=== PATIENT | female | born 1955 | race Caucasian/White ===

== ENCOUNTER 2020-03-03 18:31 | Inpatient (IN) ==
[2020-03-03] MEDS ORDERED: *HR* LORazepam 2 MG/ML VIAL IVP ONE (21:41)
[2020-03-03] MEDS ORDERED: Haloperidol Lactate 5 MG/ML VIAL IM ONE ×2 (21:51→22:36)
[2020-03-03] MEDS ORDERED: Ondansetron 4 MG/2 ML VIAL IVP PRN (22:31)
[2020-03-03] MEDS ORDERED: Naloxone 0.4 MG/ML INJ IVP PRN ×2 (22:31)
[2020-03-03] MEDS ORDERED: Acetaminophen 650 MG RECTAL SUPP RC PRN (22:31)
[2020-03-03] MEDS ORDERED: Dexmedetomidine HCl 400 MCG/100 ML MLS IVC ONE (22:53)
[2020-03-03] MEDS ORDERED: D5% in Water 1,000 ML IVC ONE (22:54)
[2020-03-03] MEDS ORDERED: levETIRAcetam 250 MG TABLET PO SCH (22:56)
[2020-03-03] MEDS ORDERED: Dexmedetomidine HCl 400 MCG/100 ML MLS IVC SCH (23:00)
[2020-03-03] MEDS ORDERED: D5% in Water 1,000 ML IVC SCH (23:00)
[2020-03-04 05:13] LABS: Basophils % 0.5 %; Eosinophils # 0.1 K/mcL (0.0-0.6); Eosinophils % 2.5 %; Hematocrit 39.6 % (35.3-44.9); Hemoglobin 12.3 g/dL (11.5-15.4); Immature Granulocytes % 0.2 % (0-4); Lymphocytes # 2.1 K/mcL (0.6-4.6); Mean Corpuscular HGB Conc 31.1 g/dL (31.6-35.5); Mean Corpuscular Hemoglobin 31.1 pg (28.0-33.3); Mean Corpuscular Volume 100.3 fL (83.0-100.0); Mean Platelet Volume 12.5 fL (9.4-12.4); Monocytes # 0.3 K/mcL (0.0-1.3); Monocytes % 7.1 %; Neutrophils # 1.8 K/mcL (1.6-8.9); Platelet Count 104 K/mcL (140-400); Red Blood Count 3.95 M/mcL (3.82-4.97); Red Cell Distribution Width 13.6 % (11.5-14.5); Segmented Neutrophils % 40.7 %; White Blood Count 4.4 K/mcL (4.3-11.1)
[2020-03-04 05:36] LABS: BUN/Creatinine Ratio 52 (6-26); Blood Urea Nitrogen 25 mg/dL (8-23); Calcium 8.8 mg/dL (8.6-10.3); Carbon Dioxide 28 mEq/L (23-29); Chloride 115 mEq/L (98-107); Glucose 155 mg/dL (70-105); Magnesium 2.1 mg/dL (1.6-2.6); Osmolality,Calculated 316 (280-300); Potassium 3.4 mEq/L (3.5-5.1); Sodium 149 mEq/L (136-145); eGFR For African Americans > 60 (> 60); eGFR For Non-African Americans > 60 (> 60)
[2020-03-04] MEDS ORDERED: *HR* Enoxaparin 30 MG/0.3 ML SYRINGE SQ SCH (06:00)
[2020-03-04] MEDS ORDERED: levETIRAcetam 250 MG TABLET PO SCH (09:00)
[2020-03-04] MEDS ORDERED: Multivit/Ca/Min/Fe/FA 1 TAB TABLET PO SCH (09:00)
[2020-03-04] MEDS ORDERED: Pantoprazole 40 MG VIAL IVP SCH (09:00)
[2020-03-04] MEDS ORDERED: Cholecalciferol (D-3) 1,000 UNIT (25MCG) TABLET PO SCH (09:00)
[2020-03-04] MEDS ORDERED: CarBAMazepine 100 MG TABLET PO SCH (09:00)
[2020-03-04] MEDS ORDERED: QUEtiapine Fumarate 25 MG TABLET PO SCH ×3 (09:00→21:00)
[2020-03-04] MEDS ORDERED: Acetaminophen 325 MG TABLET PO PRN (12:29)
[2020-03-04] MEDS ORDERED: Ondansetron 4 MG/2 ML VIAL IVP PRN (12:29)
[2020-03-04] MEDS ORDERED: D5% in Water 1,000 ML IVC SCH (12:29)
[2020-03-04] MEDS ORDERED: Acetaminophen 650 MG RECTAL SUPP RC PRN (12:29)
[2020-03-04 14:53] LABS: BUN/Creatinine Ratio 43 (6-26); Blood Urea Nitrogen 22 mg/dL (8-23); Calcium 8.9 mg/dL (8.6-10.3); Carbon Dioxide 31 mEq/L (23-29); Chloride 113 mEq/L (98-107); Glucose 77 mg/dL (70-105); Osmolality,Calculated 308 (280-300); Potassium 3.8 mEq/L (3.5-5.1); Sodium 148 mEq/L (136-145); eGFR For African Americans > 60 (> 60); eGFR For Non-African Americans > 60 (> 60)
[2020-03-04] MEDS: CarBAMazepine 100 MG TABLET PO SCH ×2 (19:46→22:38)
[2020-03-04] MEDS: QUEtiapine Fumarate 25 MG TABLET PO SCH (19:47)
[2020-03-04] MEDS ORDERED: Mirtazapine 15 MG TABLET PO SCH (21:00)
[2020-03-04] MEDS ORDERED: carBAMazepine 200 MG TABLET PO SCH (21:00)
[2020-03-04] MEDS: Cholecalciferol (D-3) 1,000 UNIT (25MCG) TABLET PO SCH (22:11)
[2020-03-04] MEDS: levETIRAcetam 250 MG TABLET PO SCH (22:12)
[2020-03-04] MEDS ORDERED: Haloperidol Lactate 5 MG/ML VIAL IVP ONE (22:21)
[2020-03-05 05:31] LABS: Basophils % 0.4 %; Eosinophils # 0.2 K/mcL (0.0-0.6); Eosinophils % 3.7 %; Hematocrit 39.8 % (35.3-44.9); Hemoglobin 12.9 g/dL (11.5-15.4); Immature Granulocytes % 0.4 % (0-4); Lymphocytes % 57.7 %; Mean Corpuscular HGB Conc 32.4 g/dL (31.6-35.5); Mean Corpuscular Hemoglobin 31.5 pg (28.0-33.3); Mean Corpuscular Volume 97.3 fL (83.0-100.0); Mean Platelet Volume 12.3 fL (9.4-12.4); Monocytes # 0.5 K/mcL (0.0-1.3); Monocytes % 8.7 %; Neutrophils # 1.5 K/mcL (1.6-8.9); Platelet Count 110 K/mcL (140-400); Red Blood Count 4.09 M/mcL (3.82-4.97); Red Cell Distribution Width 13.2 % (11.5-14.5); Segmented Neutrophils % 29.1 %; White Blood Count 5.2 K/mcL (4.3-11.1)
[2020-03-05 05:52] LABS: BUN/Creatinine Ratio 26 (6-26); Blood Urea Nitrogen 15 mg/dL (8-23); Calcium 8.6 mg/dL (8.6-10.3); Carbon Dioxide 26 mEq/L (23-29); Chloride 110 mEq/L (98-107); Glucose 94 mg/dL (70-105); Osmolality,Calculated 295 (280-300); Potassium 3.8 mEq/L (3.5-5.1); Sodium 142 mEq/L (136-145); eGFR For African Americans > 60 (> 60); eGFR For Non-African Americans > 60 (> 60)
[2020-03-05 08:06] VITALS: BP 134/9
[2020-03-05] MEDS: levETIRAcetam 250 MG TABLET PO SCH (08:36)
[2020-03-05] MEDS: QUEtiapine Fumarate 25 MG TABLET PO SCH (08:36)
[2020-03-05] MEDS: Cholecalciferol (D-3) 1,000 UNIT (25MCG) TABLET PO SCH (08:37)
[2020-03-05] MEDS ORDERED: carBAMazepine 200 MG TABLET PO SCH (09:00)
[2020-03-05] MEDS ORDERED: Naltrexone HCl 50 MG TABLET PO SCH (09:00)
== END 2020-03-05 17:12 | disposition home or self-care (01) | DRG 641 ==
LOC: ICNU → SUATTDRO 22:31 → 3ANU 03-04 16:13
PROVIDERS: ADMIT Family Medicine; ATTEND Family Medicine